=== PATIENT | female | born 1975 | race Caucasian/White ===

== ENCOUNTER 2022-11-19 19:00 | Emergency (ER) | payer OTHER ==
[2022-11-19] MEDS ORDERED: SODIUM CHLORIDE 0.9% 1,000 ML IV STA (19:18)
[2022-11-19] MEDS ORDERED: methylPREDNISolone SOD SUCCI 125 MG/2 ML VIAL IV STA (19:18)
[2022-11-19] MEDS ORDERED: ALBUTEROL NEBULIZED 2.5 MG/3 ML INHALATION STA (19:18)
--- NOTE | 2022-11-19 19:19 | ED ---
SOB HPI - General Stated Complaint: sob Time Seen by Provider: 11/19/22 19:07 - History of Present Illness Initial Comments: Patient is a 47-year-old female presents to the emergency department for shortness of breath. Patient currently resides at [facility] for alcohol and crack cocaine. She has been there for a few days. Patient states she normally has shortness of breath at baseline which she believes is due to smoking crack however for the past couple days when she goes to smoke a cigarette she feels more short of breath than normal and has coughing. She denies chest pain. No leg pain or swelling. Denies fever, chills, cold-like symptoms. Denies abdominal pain, nausea, vomiting. Patient also has burning with urination she feels that she has a urinary tract infection. Denies back pain, blood in the urine, vaginal discharge. Patient smokes one pack daily. Prior to [facility] she drank a fifth of vodka per day. - Related Data Previous Rx's Medication Instructions Recorded Amoxicillin 1,000 mg PO Q8H #42 capsule 11/19/22 Azithromycin [Zithromax] 500 mg PO DAILY #7 tab 11/19/22 Allergies Allergy/AdvReac Type Severity Reaction Status Date / Time No Known Allergies Allergy Verified 11/19/22 19:26 Review of Systems ROS Statement: Those systems with pertinent positive or pertinent negative responses have been documented in the HPI. ROS Other: All systems not noted in ROS Statement are negative. General Exam General appearance: alert, in no apparent distress Head exam: Present: atraumatic, normocephalic, normal inspection Eye exam: Present: normal appearance, PERRL, EOMI. Absent: scleral icterus, conjunctival injection, periorbital swelling Respiratory exam: Present: normal lung sounds bilaterally, wheezes (throughout ), decreased breath sounds (right lower lobe). Absent: respiratory distress, rales, rhonchi, stridor, chest wall tenderness, accessory muscle use, prolonged expiratory Cardiovascular Exam: Present: regular rate, normal rhythm, normal heart sounds. Absent: systolic murmur, diastolic murmur, rubs, gallop, clicks GI/Abdominal exam: Present: soft, normal bowel sounds. Absent: distended, tenderness, guarding, rebound, rigid Neurological exam: Present: alert, oriented X3, CN II-XII intact Psychiatric exam: Present: normal affect, normal mood Skin exam: Present: warm, dry, intact, normal color. Absent: rash Course Vital Signs 11/19/22 11/19/22 11/19/22 19:19 21:11 21:16 Temperature 98.6 F Pulse Rate 90 87 89 Respiratory 18 18 Rate Blood Pressure 114/77 136/93 O2 Sat by Pulse 96 99 Oximetry Medical Decision Making - Medical Decision Making EKG taken at 19:08, intermittent right knee Sinus rhythm, no ST segment or T-wave abnormality Ventricular rate 90, NV interval 137, QRS duration 90, QTc 425 Was pt. sent in by a medical professional or institution (, PA, POST SPLITTER, urgent care, hospital, or longterm...) When possible be specific @ -No Did you speak to anyone other than the patient for history (EMS, parent, family, police, friend...)? What history was obtained from this source @ -No Did you review nursing and triage notes (agree or disagree)? Why? @ -I reviewed and agree with nursing and triage notes Were old charts reviewed (outside hosp., previous admission, EMS record, old EKG, old radiological studies, urgent care reports/EKG's, longterm records)? Report findings @ -No old charts were reviewed Differential Diagnosis (chest pain, altered mental status, abdominal pain women, abdominal pain men, vaginal bleeding, weakness, fever, dyspnea, syncope, headache, dizziness, GI bleed, back pain, seizure, CVA, palpatations, mental health)? @ -Differential Dyspnea: Coronary syndrome, arrhythmia, tamponade, asthma, COPD, pulmonary embolism, pneumonia, pneumothorax, pulmonary effusion, anaphylaxis, diabetic ketoacidosis, flailed chest, pulmonary contusion, diaphragmatic rupture, anemia, neuromuscular, this is not meant to be an all-inclusive list. EKG interpreted by me (3pts min.). @ -As above X-rays interpreted by me (1pt min.). @ -Yes, chest x-ray shows right lower lobe airspace opacities CT interpreted by me (1pt min.). @ -None done U/S interpreted by me (1pt. min.). @ -None done What testing was considered but not performed or refused? (CT, X-rays, U/S, labs)? Why? @ -None What meds were considered but not given or refused? Why? @ -None Did you discuss the management of the patient with other professionals (professionals i.e. , PA, POST SPLITTER, lab, RT, psych nurse, dialysis social worker, manager supplier, teacher, dispatch officer, case repairer)? Give summary @ -No Was smoking cessation discussed for >3mins.? @ -I discussed smoking cessation for greater than 3 minutes. The risk of smoking were discussed with the patient including but not limited to risks of cancer, stroke, coronary artery disease and COPD. Also discussed with patient were multiple methods of quitting smoking. Lastly we discussed the financial cost of smoking. Was critical care preformed (if so, how long)? @ -No Were there social determinants of health that impacted care today? How? (Homelessness, low income, unemployed, alcoholism, drug addiction, transportation, low edu. Level, literacy, decrease access to med. care, retirement, rehab)? @ -No Was there de-escalation of care discussed even if they declined (Discuss DNR or withdrawal of care, Hospice)? DNR status @ -No What co-morbidities impacted this encounter? (DM, HTN, Smoking, COPD, CAD, Cancer, CVA, ARF, Chemo, Hep., AIDS, mental health diagnosis, sleep apnea, morbid obesity)? @ -None Was patient admitted / discharged? Hospital course, mention meds given and route, prescriptions, significant lab abnormalities, going to OR and other pertinent info. @ -Patient presented with shortness of breath. Patient resting comfortably no evidence of respiratory distress. No hypoxia. X-ray shows right lower lobe airspace opacities. Patient started on amoxicillin and azithromycin. Patient also complained of dysuria however urinalysis does not reveal evidence of infection. Patient in stable medical condition for discharge. She is discharged with a prescription of amoxicillin and azithromycin for pneumonia. Undiagnosed new problem with uncertain prognosis? @ -No Drug Therapy requiring intensive monitoring for toxicity (Heparin, Nitro, Insulin, Cardizem)? @ -No Were any procedures done? @ -No Diagnosis/symptom? @ -Pneumonia Acute, or Chronic, or Acute on Chronic? @ -Acute Uncomplicated (without systemic symptoms) or Complicated (systemic symptoms)? @ -Uncomplicated Side effects of treatment? @ -No Exacerbation, Progression, or Severe Exacerbation? @ -No Poses a threat to life or bodily function? How? (Chest pain, [place], [place], pneumonia, PE, COPD, DKA, ARF, appy, cholecystitis, CVA, Diverticulitis, Homicidal, Suicidal, threat to staff... and all critical care pts) @ -No Dr. Sanders is my attending - Lab Data Result diagrams: 11/19/22 19:34 11/19/22 19:34 Lab Results 11/19/22 11/19/22 11/19/22 Range/Units 19:34 19:34 19:34 WBC 4.6 (3.8-10.6) k/uL RBC 3.58 L (3.80-5.40) m/uL Hgb 12.0 (11.4-16.0) gm/dL Hct 34.7 (34.0-46.0) % MCV 97.0 (80.0-100.0) fL MCH 33.6 (25.0-35.0) pg MCHC 34.6 (31.0-37.0) g/dL RDW 15.7 H (11.5-15.5) % Plt Count 241 (150-450) k/uL MPV 6.9 Neutrophils % 54 % Lymphocytes % 39 % Monocytes % 3 % Eosinophils % 3 % Basophils % 0 % Neutrophils # 2.4 (1.3-7.7) k/uL Lymphocytes # 1.8 (1.0-4.8) k/uL Monocytes # 0.2 (0-1.0) k/uL Eosinophils # 0.1 (0-0.7) k/uL Basophils # 0.0 (0-0.2) k/uL Sodium 138 (137-145) mmol/L Potassium 3.5 (3.5-5.1) mmol/L Chloride 99 (98-107) mmol/L Carbon Dioxide 32 H (22-30) mmol/L Anion Gap 7 mmol/L BUN 13 (7-17) mg/dL Creatinine 0.83 (0.52-1.04) mg/dL Est GFR (CKD-EPI)AfAm >90 (>60 ml/min/1.73 sqM) Est GFR (CKD-EPI)NonAf 86 (>60 ml/min/1.73 sqM) Glucose 90 (74-99) mg/dL Calcium 8.3 L (8.4-10.2) mg/dL Total Bilirubin 0.3 (0.2-1.3) mg/dL AST 19 (14-36) U/L ALT 15 (4-34) U/L Alkaline Phosphatase 85 (38-126) U/L Total Protein 7.0 (6.3-8.2) g/dL Albumin 4.0 (3.5-5.0) g/dL Urine Color Light Yellow Urine Appearance Clear (Clear) Urine pH 6.5 (5.0-8.0) Ur Specific [place] 1.005 (1.001-1.035) Urine Protein Negative (Negative) Urine Glucose (UA) Negative (Negative) Urine Ketones Negative (Negative) Urine Blood Negative (Negative) Urine Nitrite Negative (Negative) Urine Bilirubin Negative (Negative) Urine Urobilinogen <2.0 (<2.0) mg/dL Ur Leukocyte Esterase Negative (Negative) Disposition Clinical Impression: Pneumonia Disposition: HOME SELF-CARE Condition: Good Instructions (If sedation given, give patient instructions): Bacterial Pneumonia (ED) Additional Instructions: Take medication as directed. Please follow-up with your primary care provider in 1-2 days. Return to the emergency department if you experience new, concern ing, or worsening symptoms. Prescriptions: Amoxicillin 1,000 mg PO Q8H #42 capsule Azithromycin [Zithromax] 500 mg PO DAILY #7 tab Is patient prescribed a controlled substance at d/c from ED?: No Referrals: None,Stated [Primary Care Provider] - 1-2 days
[2022-11-19 19:28] VITALS: RESP 18; TEMP 98.6
[2022-11-19] MEDS ORDERED: LORazepam 1 MG TAB PO STA (19:59)
[2022-11-19 20:32] LABS: Basophils % (A) 0 %; Eosinophils # (A) 0.1 k/uL (0-0.7); Eosinophils % (A) 3 %; HCT 34.7 % (34.0-46.0); Lymphocytes # (A) 1.8 k/uL (1.0-4.8); Lymphocytes % (A) 39 %; MCH 33.6 pg (25.0-35.0); MCHC 34.6 g/dL (31.0-37.0); Mean Platelet Volume 6.9; Monocytes # (A) 0.2 k/uL (0-1.0); Monocytes % (A) 3 %; Neutrophils # (A) 2.4 k/uL (1.3-7.7); Neutrophils % (A) 54 %; Platelet Count 241 k/uL (150-450); RBC 3.58 m/uL (3.80-5.40); RDW 15.7 % (11.5-15.5); WBC 4.6 k/uL (3.8-10.6)
[2022-11-19 20:37] LABS: Appearance,Urine Clear (Clear); Bilirubin,Urine Negative (Negative); Blood,Urine Negative (Negative); Color,Urine Light Yellow; Glucose,Urine (UA) Negative (Negative); Ketones,Urine Negative (Negative); Leukocyte Esterase,Urine Negative (Negative); Nitrite,Urine Negative (Negative); PH, Urine 6.5 (5.0-8.0); Protein,Urine Negative (Negative); Specific Gravity,Urine 1.005 (1.001-1.035); Urobilinogen,Urine <2.0 mg/dL (<2.0)
[2022-11-19 20:49] LABS: ALT 15 U/L (4-34); AST 19 U/L (14-36); African American GFR (CKD) >90 (>60 ml/min/1.73 sqM); Alkaline Phosphatase 85 U/L (38-126); Anion Gap 7 mmol/L; Blood Urea Nitrogen 13 mg/dL (7-17); Calcium 8.3 mg/dL (8.4-10.2); Carbon Dioxide 32 mmol/L (22-30); Chloride 99 mmol/L (98-107); Glucose 90 mg/dL (74-99); Non-African American GFR(CKD) 86 (>60 ml/min/1.73 sqM); Potassium 3.5 mmol/L (3.5-5.1); Sodium 138 mmol/L (137-145); Total Bilirubin 0.3 mg/dL (0.2-1.3)
--- NOTE | 2022-11-19 20:51 | XR ---
EXAMINATION TYPE: XR chest 2V DATE OF EXAM: 11/19/2022 8:11 PM COMPARISON: None TECHNIQUE: XR chest 2V Frontal and lateral views of the chest. CLINICAL INDICATION:Female, 47 years old with history of cough SOB; FINDINGS: Lungs/Pleura: Lower lobe airspace opacities. There is no evidence of pleural effusion, focal consolid ation, or pneumothorax. Pulmonary vascularity: Unremarkable. Heart/mediastinum: Cardiomediastinal silhouette is unremarkable. Musculoskeletal: No acute osseous pathology. IMPRESSION: Right lower lobe airspace opacities correlate for pneumonia.
[2022-11-19] MEDS ORDERED: AMOXICILLIN 250 MG/5 ML 80 ML BOTTLE PO STA (20:54)
[2022-11-19] MEDS ORDERED: AMOXICILLIN 500 MG CAP PO STA (20:56)
[2022-11-19] MEDS ORDERED: AZITHROMYCIN 250 MG TAB PO STA (20:57)
[2022-11-19 21:19] VITALS: BP 136/93
[2022-11-19 21:21] VITALS: PULSE 90
== END 2022-11-19 23:05 | disposition home or self-care (01) ==
LOC: EC 19:00
DX: J18.9 Pneumonia, unspecified organism (principal)
CPT/HCPCS: 36415; 94640; 93005; 80053; 85025; 81003; 71046; 99285; 96374; 96361; J2930